=== PATIENT | female | born 1985 | race Caucasian/White ===

== ENCOUNTER 2019-11-03 23:33 | Emergency (ER) | payer BC ==
[~2019-11-03] VITALS: Ht 175.3 cm; Wt 121.6 kg
[2019-11-03 23:48] VITALS: BP_SYST 135
[2019-11-04 01:00] VITALS: BP_SYST 135
== END 2019-11-04 01:32 | disposition left against medical advice (07) ==
LOC: SED 23:33
DX: H92.02 Otalgia, left ear (principal); H91.92 Unspecified hearing loss, left ear; H93.12 Tinnitus, left ear
CPT/HCPCS: 99281